=== PATIENT | male | born 1955 | race Caucasian/White ===

== ENCOUNTER 2018-01-11 06:29 | Day surgery (SDC) | payer OTHER ==
[~2018-01-11] VITALS: Ht 182.9 cm; Wt 79.5 kg
[~2018-01-11 06:29] MED LIST: APIX5TAB PO; ASPI81TA27 PO; DIGO0.2570 PO; LISI2.5T47 PO; METO-159 PO
[2018-01-11] MEDS ORDERED: LIDOCAINE 2%HCL (LOCAL ANESTH.) INJ 10ml MDV ONE (07:19)
[2018-01-11] MEDS ORDERED: fentaNYL CITRATE 100 MCG/2 ML VL ONE (07:38)
[2018-01-11] MEDS ORDERED: MIDAZOLAM HCL 1MG/1ML-2 ML VIAL ONE (07:39)
[2018-01-11] MEDS ORDERED: ceFAZolin 1GM/50ML 100 ML IV ONE (07:51)
== END 2018-01-11 10:40 | disposition home or self-care (01) ==
LOC: CATH 06:29
PROVIDERS: ATTEND Specialist
DX: I48.91 Unspecified atrial fibrillation (principal); I10 Essential (primary) hypertension; J44.9 Chronic obstructive pulmonary disease, unspecified; F17.210 Nicotine dependence, cigarettes, uncomplicated; Z95.810 Presence of automatic (implantable) cardiac defibrillator; Z79.899 Other long term (current) drug therapy; Z82.49 Family history of ischemic heart disease and other diseases of the circulatory system
CPT/HCPCS: 93005; 93650; 99152; 99153; C1733; C1894; J0690; J1644; J2001; J2250; J3010; J7030